=== PATIENT | male | born 1985 | race Two or more races ===

== ENCOUNTER 2018-04-06 23:10 | Emergency (ER) | payer SELFPAY ==
[~2018-04-06] VITALS: Ht 170.2 cm; Wt 74.8 kg
[2018-04-06 23:30] VITALS: BP 151/90
[2018-04-06] MEDS ORDERED: Tylenol #3 tab (300mg/30mg) PO ONE (23:45)
[2018-04-07] MEDS ORDERED: IBUPROFEN600 MG ORAL (00:56)
[2018-04-07] MEDS ORDERED: TYLENOL EXTRA500 MG ORAL (01:07)
[2018-04-07] MEDS ORDERED: ROBAXIN-750750 MG PO (01:07)
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
[2018-04-07 01:27] VITALS: BP 140/88
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
--- NOTE | 2018-04-07 10:31 | Diagnostic Imaging Report ---
Indication: Knee Pain 3 views of the left knee were obtained. Findings: No acute fracture, malalignment, or joint effusion are identified. Joint space is relatively well-maintained. Impression: Negative for acute injury
--- NOTE | 2018-04-07 10:32 | Diagnostic Imaging Report ---
Indication: Right wrist pain Findings: 3 views of the right wrist were obtained. No acute fractures, malalignment, erosions or periostitis are identified. Soft tissues are unremarkable. Impression: No acute findings.
== END 2018-04-07 01:15 | disposition home or self-care (01) ==
LOC: EDBD 23:10 → EMR 23:31
DX: S69.91XA Unspecified injury of right wrist, hand and finger(s), initial encounter (principal); V43.62XA Car passenger injured in collision with other type car in traffic accident, initial encounter; Y92.410 Unspecified street and highway as the place of occurrence of the external cause; M25.562 Pain in left knee; M25.561 Pain in right knee
CPT/HCPCS: 99284

== ENCOUNTER 2018-04-09 12:33 | Emergency (ER) | payer SELFPAY ==
[~2018-04-09] VITALS: Ht 160 cm; Wt 63.5 kg
[~2018-04-09 12:33] MED LIST: IBUPROFEN600 MG ORAL; ROBAXIN-750750 MG PO; TYLENOL EXTRA500 MG ORAL
[2018-04-09 12:52] VITALS: BP 127/71
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
[2018-04-09] MEDS ORDERED: ROBAXIN-750750 MG PO (14:53)
[2018-04-09] MEDS ORDERED: ACETAMINOPHEN-1 EAC1 ORAL (14:58)
[2018-04-09 15:06] VITALS: BP 127/71
== END 2018-04-09 15:10 | disposition home or self-care (01) ==
LOC: EMR 13:25
DX: R51 Headache (principal); M62.838 Other muscle spasm; Z88.6 Allergy status to analgesic agent
CPT/HCPCS: 70450; 99284